=== PATIENT | male | born 1995 | race Hispanic/Latino ===

== ENCOUNTER 2019-08-01 09:56 | Outpatient (CLI) | payer OTHER, SELFPAY ==
--- NOTE | ~2019-08-01 | US_ITS ---
EXAMINATION: US retroperitoneal duplex ltd DATE: 08/01/2019 13:30 PRESSING MACHINE OPERATOR INDICATION: Essential hypertension. TECHNIQUE: Sonographic imaging of the kidneys was performed with a 3.5 MHz transducer. Retroperitone al duplex sonogram of the renal arteries also obtained. FINDINGS: No focal flow abnormalities are seen in the renal arteries on color Doppler. The peak syst olic velocity ranges of the right and left renal arteries and aorta are 102 cm per second, 84 cm per second, and 80 cm per second, respectively. The velocities and renal to aortic ratios are within norm al limits. IMPRESSION: 1. No Doppler evidence of renal artery stenosis. Reviewed, dictated and finalized at location A. SING MACHINE OPERATOR
== END 2019-08-01 09:57 | disposition home or self-care (01) ==
PROVIDERS: PCP Internal Medicine; Visit Provider Internal Medicine
DX: I10 Essential (primary) hypertension (principal)
CPT/HCPCS: 93976

== ENCOUNTER 2019-08-18 15:17 | Outpatient (CLI) | payer OTHER, SELFPAY ==
--- NOTE | 2019-08-18 | ECHO_ITS ---
Patient Info Name: Edwin Heredia Age: 24 years : 1995 Gender: Male Ht: 67 in Wt: 220 lbs BSA: 2.21 m2 HR: 76 bpm BP: 166 / 116 mmHg Heart Rhythm: Sinus Rhythm Technical Quality: Good Exam Date: 08/18/2019 3:41 PM Exam Location: [facility] Card Pulmonary Patient Status: Outpatient Admit Date: 08/18/2019 Staff Ordering Physician: AureTl MD Munitions Worker: Rae Wright RDCS Attending Provider: Aure, Tl Sorensen MD Referring Physician: Gabriel DRUMMOND; Exam Type: CA echo doppler color flow Study Info Indications - essential htn Complete two-dimensional, color flow and Doppler transthoracic echocardiogram is performed. Summary 1. Normal left ventricular size and systolic function, EF 60-65%. Borderline criteria for diastolic dysfunction. Moderate LVH. No segmental wall motion abnormalities. 2. No significant valve disease. 3. Normal sinus rhythm. Left Ventricle Left ventricular chamber dimension is normal. Left ventricular systolic function is normal, estimated at 60-65%. There is moderately increased left ventricular wall thickness. Left ventricular septal wall motion is normal. The left ventricular diastolic function is abnormal. Right Ventricle Right ventricular chamber dimension is normal. Right ventricular systolic function is normal. Left Atria Left atrial chamber dimension is normal. Right Atria Right atrial chamber dimension is normal. Aortic Valve The aortic valve is trileaflet. There is no aortic valve sclerosis. There is no aortic valve stenosis. There is no aortic valve regurgitation. Pulmonic Valve The pulmonic valve is normal. There is no pulmonic valve stenosis. There is no pulmonic regurgitation. Mitral Valve The mitral valve has normal leaflets. There is no mitral valve stenosis. There is no mitral valve regurgitation. Tricuspid Valve The tricuspid valve leaflets are normal. There is no significant tricuspid valve stenosis. There is trace tricuspid valve regurgitation. No pulmonary hypertension, estimated pulmonary arterial systolic pressure is 29 mmHg. Pericardium/Pleural The pericardium appears normal. There is no pericardial effusion. Inferior Vena Cava Normal inferior vena cava with >50% collapse upon inspiration consistent with Empty right atrial pressure, 10 mmHg. Aorta The aortic root size at the sinus of Valsalva is normal. The prox ascending aorta size is normal. Left Ventricular Outflow Tract Name Value Normal LVOT 2D LVOT Diameter 2.1 cm LVOT Doppler LVOT Peak Gradient 4 mmHg LVOT Mean Gradient 3 mmHg LVOT VTI 16 cm LVOT VTI/AV VTI Ratio 0.8 LVOT Stroke Volume 59 ml LVOT CO 16.3 l/min LVOT CI 7.4 l/min/m2 Pulmonic Valve Name Value Normal
== END 2019-08-18 15:18 | disposition home or self-care (01) ==
PROVIDERS: Visit Provider Internal Medicine
DX: I10 Essential (primary) hypertension (principal)
CPT/HCPCS: 93306